=== PATIENT | male | born 1980 | race Caucasian/White ===

== ENCOUNTER 2017-03-24 22:54 | Observation (INO) ==
[2017-03-24 23:25] LABS: URINE MICROSCOPIC NEEDED? NO; URINE SOURCE CLEAN CATCH
[2017-03-24] MEDS ORDERED: ZOFRAN IV ONE (23:27)
[2017-03-24] MEDS ORDERED: TORADOL IV ONE (23:27)
[2017-03-24 23:45] LABS: BILIRUBIN URINE NEGATIVE (NEGATIVE); BLOOD URINE NEGATIVE (NEGATIVE); CLARITY CLEAR (CLEAR); COLOR YELLOW; GLUCOSE URINE NEGATIVE (NEGATIVE); LEUKOCYTES URINE NEGATIVE (NEGATIVE); NITRITE URINE NEGATIVE (NEGATIVE); PROTEIN URINE NEGATIVE (NEGATIVE); UROBILINOGEN URINE NORMAL
--- NOTE | 2017-03-24 23:48 | PROVIDER DOCUMENTATION ---
HPI-Abdominal Pain/GI Problem - General Chief Complaint: Abdominal Pain Stated Complaint: ABD PAIN, BACK PAINM VOMITING Time Seen by Provider: 03/24/17 23:19 Allergies/Adverse Reactions: Patient Allergies Allergy/AdvReac Type Severity Reaction Status Date / Time No Known Allergies Allergy Verified 03/24/17 23:08 Home Medications: Home Medication List Medication Instructions Recorded Confirmed Last Taken Type NK [No Home Medications] 03/24/17 03/24/17 Unknown History - History of Present Illness-ABD Nature of Presenting Problems: PT C/O LOWER ABD PAIN RADIATING TO LOW BACK THAT WOKE HIM FROM HIS SLEEP TONIGHT. STS HE WENT TO THE BATHROOM TO HAVE A BM BUT WASN'T ABLE TO. STS WHEN HE GOT BACK INTO BED, HE HAD NAUSEA AND STARTED VOMITING. HAD NORMAL BM THIS MORNING HE DOES EVERY MORNING. DENIES URINARY SX. STS HE ATE A BIG MEAL FOR LUNCH SO HE DIDN'T EAT DINNER LAST NIGHT. Abdominal Pain Onset Location: reports: suprapubic Pain Radiation: reports: back Quality of Pain: reports: sharp Severity in ED: reports: moderate Onset/Duration: reports: just prior to arrival Timing: reports: still present, intermittent Activities at Onset: reports: sleep Exposure to sick contacts?: No Modifying Factors: improves with: nothing Associated Symptoms: reports: back/neck pain, fever/chills, nausea, vomiting. denies: constipation, diarrhea Last BM: this morning Dark Stools Present?: reports: none noticed Rectal Bleeding: reports: none Rectal Pain: reports: none # of Vomiting Episodes: 5 Emesis Description: reports: clear Bruising or Bleeding Gums?: No Similar Symptoms Previously?: No Recently seen or treated by another doctor?: No Review of Systems - Adult - REVIEW OF SYSTEMS - ADULT Constitutional: reports: chills. denies: fever Eyes: reports: no symptoms reported Ears, Nose, Mouth & Throat: reports: no symptoms reported Cardiovascular: reports: no symptoms reported. denies: chest pain, palpitations , syncope Respiratory: reports: no symptoms reported. denies: cough, shortness of breath Gastrointestinal: reports: see HPI, abdominal pain, nausea, vomiting. denies: constipation, diarrhea Genitourinary: reports: no symptoms reported. denies: dysuria Musculoskeletal: reports: see HPI, back pain Integumentary: reports: no symptoms reported Neurological: reports: no symptoms reported Psychiatric: reports: no symptoms reported Endocrine: reports: no symptoms reported Hematologic/Lymphatic: reports: no symptoms reported Allergic/Immunologic: reports: no symptoms reported All Other Systems: Reviewed and Negative Past History - Adult - PAST MEDICAL HISTORY-ADULT Review of Records: reports: Nursing Assessment Review, Medications Reviewed Major Childhood Illnesses: reports: denies history Cardiovascular: reports: denies history Respiratory: reports: denies history Gastrointestinal: reports: denies history Genitourinary: reports: denies history Musculoskeletal: reports: denies history Neurological: reports: denies history Psychiatric: reports: denies history Endocrine/Immune: reports: denies history Other Conditions: reports: denies history Physical Exam-General - PHYSICAL EXAM-ADULT Initial Vital Signs Reviewed: Yes - CONSTITUTIONAL General Appearance: appears well, alert, no apparent distress - EYES Eyes: PERRL/EOMI - HEAD, EARS, NOSE, MOUTH & THROAT HENMT: moist mucous membranes - RESPIRATORY Respiratory: chest non-tender, lungs clear, normal breath sounds, no pleuratic chest pain, no respiratory distress, no accessory muscle use - CARDIOVASCULAR Cardiovascular: regular rate, rhythm - GASTROINTESTINAL (ABDOMEN) Abdominal Exam: normal bowel sounds, soft, no organomegaly, no pulsatile mass, tenderness (SUPRAPUBIC) - MUSCULOSKELETAL Back Exam: normal inspection, no vertebral tenderness, CVA tenderness Extremity: normal range of motion, non-tender, normal gait, normal inspection - SKIN Integumentary: normal color, normal turgor, warm/dry - NEUROLOGIC Neurologic: grossly normal, no motor/sensory deficits - PSYCHIATRIC Psych/Mental Status: normal mood/affect, oriented x 3 Progress - PLAN OF CARE/RESULTS Progress/Plan/Lab Results: Vital Signs - 8 hr 03/24/17 23:08 Temperature 97.6 F Pulse Rate 90 Respiratory Rate 22 Blood Pressure 126/75 O2 Sat by Pulse Oximetry 97 Laboratory Results - last 24 hr 03/24/17 23:20 Urine Source CLEAN CATCH Orders Category Date Time Status Saline Loc NOW Care 03/24/17 23:26 Active AMYLASE [CHEM] Stat Lab 03/24/17 23:27 Uncollected CBC WITH ELECTRONIC DIFF [HEME] Stat Lab 03/24/17 23:26 Uncollected COMPREHENSIVE METABOLIC PANEL [CHEM] Stat Lab 03/24/17 23:26 Uncollected LIPASE [CHEM] Stat Lab 03/24/17 23:27 Uncollected UA [URINALYSIS PL] [URINALYSIS] Stat Lab 03/24/17 23:20 Results Ketorolac [Toradol] Med 03/24/17 23:27 Discontinued 30 mg IV NOW ONE Ondansetron [Zofran] Med 03/24/17 23:27 Discontinued 4 mg IV NOW ONE Result Diagrams: 03/25/17 00:31 03/25/17 00:31 - CHANGE OF SHIFT REPORT (ED Provider) Report Given and Care Transferred to:: DR. MUNOZ Time of Transfer: 02:03 Items Pending: CT/MRI Results Departure - Departure Date of Disposition Decision: 03/25/17 Time of Disposition Decision: 02:27 DIAGNOSIS: Appendicitis Qualifiers: Appendicitis type: acute appendicitis Acute appendicitis type: unspecified acute appendicitis type Qualified Code(s): K35.80 - Unspecified acute appendicitis Disposition: ADMITTED INPATIENT 09 Certified Medical Emergency: Emergent Condition: Stable Referrals and Follow-Ups: Marcelo Richardson MD [ACTIVE STAFF PHYSICIAN] - None,PCP [Primary Care Provider] - Work Excuses: Return to School/Parent Work - Critical Care Note This patient required my direct & personal management of CC.: Yes Attestation - Physician/ ROVERTO Attestation Patient care was provided by Advanced Practice Provider:: Yes Advanced Practice Provider:: Lazara King Advanced Practice Provider documentation review:: The Mid-level provider documentation, treatment plan and medical decision making was reviewed by the physician who agrees with all treatment and medical decision making by the [facility].
[2017-03-25 00:50] LABS: MANUAL DIFF NEEDED? NO
[2017-03-25 00:51] LABS: BASO% 0.2 % (0.0-0.8); EOS# 0.07 X1000 (0.0-0.7); EOS% 0.4 % (0.0-10.0); HEMATOCRIT 45.1 % (42.0-52.0); HEMOGLOBIN 16.1 g/dL (14.0-18.0); IMM GRAN# 0.03 X1000 (0.0-0.04); IMM GRAN% 0.2 % (0.0-0.5); LYMPH# 1.77 X1000 (1.2-3.4); LYMPH% 9.9 % (20.5-51.1); MCH 33.5 PG (27-31); MCHC 35.7 g/dL (33-37); MCV 93.8 FL (81-99); MONO# 1.09 X1000 (0.11-0.59); MONO% 6.1 % (1.7-9.3); MPV 11.1 FL (7.4-10.4); NEUT% 83.2 % (42.2-75.2); PLT 130 X1000 (130-400); RBC 4.81 XMIL (4.7-6.1)
[2017-03-25 01:05] LABS: AGAP 15; ALKALINE PHOSPHATASE 77 U/L (32-122); AMYLASE 49 U/L (20-200); BUN 10 mg/dL (8-22); CALCIUM 8.8 mg/dL (8.8-10.2); CHLORIDE 104 mmol/L (98-107); COSMO 278; GOT 28 U/L (10-34); GPT 24 U/L (10-44); LIPASE 47 U/L (13-60); POTASSIUM 3.2 mmol/L (3.5-5.1); SODIUM 140 mmol/L (136-145); TCO2 21 mmol/L (25-35); TOTAL PROTEIN 6.7 g/dL (6.3-8.3)
[2017-03-25] MEDS ORDERED: ZOSYN 3.375 GM/NS 3.375 GM/50 ML IVPB IV ONE (02:29)
[2017-03-25] MEDS ORDERED: NS 1,000 ML IV ONE (02:29)
[2017-03-25] MEDS ORDERED: ZOFRAN IV PRN (02:29)
--- NOTE | 2017-03-25 06:52 | HISTORY AND PHYSICAL ---
ADMITTING DIAGNOSIS: Appendicitis. HISTORY OF PRESENT ILLNESS: A 36-year-old, male presenting with suprapubic to right lower quadrant pain that awoke him from his sleep. He said he has never had pain like this before. He said he also started having some diarrhea. He has denies any kind of changes in his bowel habits prior to that. He denies any kind of anorexia. He was seen in emergency department, had leukocytosis of 17,000. A CT scan that confirmed appendicitis. The patient says he is feeling better after his pain medicine. PAST MEDICAL HISTORY: None. PAST SURGICAL HISTORY: None. HOME MEDICATIONS: None. ALLERGIES: None. SOCIAL HISTORY: Reviewed with patient. FAMILY HISTORY: Reviewed with patient but noncontributory. REVIEW OF SYSTEMS: A full 10 point review of systems was obtained and negative except as specified in the HPI. PHYSICAL EXAMINATION: VITAL SIGNS: Patient is currently afebrile. His vital signs are stable. GENERAL: No acute distress but feels uncomfortable. male, looks stated age. HEENT: Normocephalic, atraumatic. Pupils equal, round, react to light. Mucous membranes moist. Oropharynx benign. NECK: Supple. Trachea midline. CARDIOVASCULAR: Regular rate and rhythm. LUNGS: Grossly clear. ABDOMEN: Soft. Tender to palpation in the suprapubic and right lower quadrant. Positive rebound tenderness noted in the right lower quadrant. EXTREMITIES: Moves all extremities. NEUROLOGIC: Grossly intact. SKIN: No signs of jaundice. VASCULAR: All extremities perfused. LABORATORY: White blood cell count 17. Remainder of labs reviewed. CT scan independently reviewed and preliminary radiology report reviewed. Patient does have what appears to be appendicitis. It does not look perforated. ASSESSMENT/PLAN: A 36-year-old, male with acute appendicitis. Acute appendicitis. At this time, patient is on Zosyn. Discussed with him the risks, benefits, and alternatives of laparoscopic appendectomy. We will plan on that later today. cc: Eric Gonzalez MD
--- NOTE | 2017-03-25 07:21 | Diag Imaging Result Doc PS360 ---
EXAM: CT ABD/PELVIS W/ IV CONT ONLY HISTORY: ABD PAIN, ELEVATED WBC TECHNIQUE: CT of the abdomen and pelvis with intravenous contrast and dose reduction (clarity.) COMMENT: No significant abnormality is demonstrated in the visualized portion of the chest. There are granulomatous calcifications in the spleen. The adrenal glands are not enlarged. The liver is slightly hypodense suggesting fatty change. There are no gallstones. The pancreas is within normal limits. The kidneys are without evidence of hydronephrosis mass or stones. There is dilatation of the appendix with periappendiceal inflammation. The appendix is 9 mm in diameter. There is atherosclerotic calcification and noncalcified plaque in the distal abdominal aorta, which is distended to 2.[address] of the pelvis: There is diverticulosis in the sigmoid colon. No evidence of acute diverticulitis is present. There is free fluid in the rectovesical pouch. There is no evidence of adenopathy of significant adenopathy. There is bilateral spondylolysis at L5. IMPRESSION: Acute appendicitis. 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 Mild hepatic steatosis. Electronically signed by Lars Mcginnis 03/25/2017 7:19 AM
[2017-03-25] MEDS: DILAUDID IM PRN ×2 (07:59→13:10)
[2017-03-25] MEDS ORDERED: ZOSYN 3.375 GM/NS 3.375 GM/50 ML IVPB IV SCH (09:00)
[2017-03-25] MEDS ORDERED: FENTANYL ONE (10:17)
[2017-03-25] MEDS ORDERED: DIPRIVAN 1% ONE (10:17)
[2017-03-25] MEDS ORDERED: LR 1,000 ML ONE (10:20)
[2017-03-25] MEDS ORDERED: SENSORCAINE 0.25%/EPI 1:200,000 ONE (10:20)
[2017-03-25] MEDS ORDERED: XYLOCAINE-MPF 2% ONE (10:22)
[2017-03-25] MEDS ORDERED: ROBINUL ONE (10:22)
[2017-03-25] MEDS ORDERED: ZEMURON ONE (10:22)
[2017-03-25] MEDS ORDERED: QUELICIN (DOSE) ONE (10:22)
[2017-03-25] MEDS ORDERED: TORADOL ONE (11:05)
[2017-03-25] MEDS ORDERED: ZOFRAN ONE (11:05)
[2017-03-25] MEDS ORDERED: NEOSTIGMINE ONE (11:05)
[2017-03-25 12:35] VITALS: BP 131/84
--- NOTE | 2017-03-25 18:28 | OPERATIVE NOTE ---
PROCEDURE DATE: 03/25/2017 PREOPERATIVE DIAGNOSIS: Appendicitis. POSTOPERATIVE DIAGNOSIS: Appendicitis. PROCEDURES: Laparoscopic appendectomy. SURGEON: Eric Gonzalez MD. RADIOTELEGRAPHER: None. ANESTHESIA: General endotracheal. INTRAOPERATIVE FINDINGS: As above. COMPLICATIONS: None at time of dictation. ESTIMATED BLOOD LOSS: 10 mL. SPECIMENS REMOVED: Appendix. BRIEF HISTORY: Patient is a 36-year-old male who presented with classic symptoms for appendicitis. He had a CT scan that showed it and a white blood cell count was 17,000. It was felt the patient would benefit from appendectomy. The risks, benefits, and alternatives were discussed. All questions answered. DESCRIPTION OF PROCEDURE: After informed consent was obtained, patient brought to the operative theatre, transferred to operating table, placed in supine position. General endotracheal anesthesia was then performed without complication. A formal time-out was then performed, confirming patient, date, procedure. All were in agreement. At that time, attention was given to the abdomen. An infraumbilical incision was made through which using Optiview technique we were able to insert a 12-mm trocar, connected to insufflation. Pneumoperitoneum was achieved. Under direct visualization, we placed 2 more trocars, one 5 mm in right upper quadrant, one 5 mm in left lower quadrant. Using these, the appendix was identified. It had a corkscrew bend to it. We were able to elevate it. We used the LigaSure to take down some of the mesentery of the appendix. We were able to elevate it enough that we could find the base of it. We then dissected a window in the base of the mesoappendix, fired a stapler with good results. We then used the LigaSure to take down the remaining. The mesoappendix and placed into a bag and brought it out through the infraumbilical incision. We then reexamined the area and did not see any remnants of bleeding or succus or stool or remnants of the appendix. We irrigated out the abdomen copiously until suction fluid was clear. We reexamined the abdomen. There was no other pathology that I can appreciate. We then closed the infraumbilical incision with 0 Vicryl and Estiven-Ronel device. We then removed all trocars, disconnected insufflation and pneumoperitoneum was released. All skin incisions were closed with 4-0 Monocryl. The patient tolerated procedure well and was transferred back to recovery room in stable condition. Postoperatively, he will be discharged home. cc: Eric Gonzalez MD
== END 2017-03-25 13:59 | disposition home or self-care (01) ==
LOC: SUPCPDRO → 4N 22:54 → P.ED 22:54
PROVIDERS: ADMIT Surgery; ATTEND Surgery